=== PATIENT | female | born 1960 | race Two or more races ===

== ENCOUNTER 2021-06-13 09:19 | Emergency (ER) | payer OTHER ==
[~2021-06-13] VITALS: Ht 157.5 cm; Wt 61.2 kg
[2021-06-13] MEDS ORDERED: ENALAPRIL MALEAT5 MG PO (09:38)
[2021-06-13] MEDS ORDERED: JANUMET 50-1,01 EACH PO (09:38)
[2021-06-13] MEDS ORDERED: LIPITOR40 M1 PO (09:38)
[2021-06-13] MEDS ORDERED: MEDROLPACK PO (10:35)
[2021-06-13] MEDS ORDERED: ATARAX25 MG PO (10:35)
[2021-06-13] MEDS ORDERED: ZYRTEC10 M3 PO (10:35)
== END 2021-06-13 14:10 | disposition home or self-care (01) ==
LOC: ER 09:19
DX: T78.3XXA Angioneurotic edema, initial encounter (principal); E11.9 Type 2 diabetes mellitus without complications; Z79.84 Long term (current) use of oral hypoglycemic drugs; I10 Essential (primary) hypertension